=== PATIENT | female | born 1955 | race Caucasian/White ===

== ENCOUNTER 2018-01-27 19:00 | Emergency (ER) | payer BC, OTHER ==
[~2018-01-27] VITALS: Ht 167.6 cm; Wt 63.5 kg
[2018-01-27] MEDS ORDERED: IBUPROFEN 600 MG TABLET PO ONE (21:00)
[2018-01-27] MEDS ORDERED: IBUPROFEN 600 MG TABLET ONE (21:22)
--- NOTE | 2018-01-27 21:59 | NUR ---
Patient discharged to home in stable conditon. Written and verbal after care instructions given. Patient verbalizes understanding of instructions.
[2018-01-27 22:11] VITALS: BP 116/86
== END 2018-01-27 22:12 | disposition home or self-care (01) ==
LOC: ER 19:01
DX: S92.514A Nondisplaced fracture of proximal phalanx of right lesser toe(s), initial encounter for closed fracture (principal); I10 Essential (primary) hypertension; E78.00 Pure hypercholesterolemia, unspecified; Z90.49 Acquired absence of other specified parts of digestive tract; W01.0XXA Fall on same level from slipping, tripping and stumbling without subsequent striking against object, initial encounter; Y93.89 Activity, other specified; Y92.89 Other specified places as the place of occurrence of the external cause; Y99.8 Other external cause status
CPT/HCPCS: 73660; 99284; A4663